=== PATIENT | male | born 1945 | race Asian ===

== ENCOUNTER 2025-04-05 15:56 | Emergency (ER) | payer MEDICARE, OTHER ==
[~2025-04-05] VITALS: Ht 165.1 cm; Wt 73.2 kg
[~2025-04-05 15:56] MED LIST: ACET500T94 PO; ASPI-1444 PO; GLIP5TAB15 PO; IBUP-2077 PO; LISI1TAB PO; LORA10TA7 PO; METF1000 PO; OMEP20CA12 PO; PIOG45TA63 PO; SIMV-261 PO
[2025-04-05 16:04] VITALS: TEMP 98.1
[2025-04-05 16:39] LABS: PLATELET COUNT (AUTO) 213 K/uL (150-450); RED BLOOD CELL COUNT(AUTO) 4.25 MIL/uL (4.50-5.90); RED CELL DISTRIBUTION WIDTH 13.8 % (11.5-14.5); WHITE BLOOD COUNT (AUTO) 6.8 K/uL (4.5-11.0)
[2025-04-05 16:48] LABS: CALCIUM, TOTAL 8.4 mg/dL (8.8-10.5); CREATININE 1.75 mg/dL (0.60-1.30); GLOMERULAR FILTR. RATE CALC 38.0 mL/min (>60); GLUCOSE,RANDOM 137.0 mg/dL (70-110); SODIUM SERUM 136.0 mmol/L (136-145); UREA NITROGEN, BLOOD 38.0 mg/dL (7-18)
[2025-04-05 16:53] LABS: CREATINE KINASE, TOTAL ONLY 113 U/L (39-308)
[2025-04-05 16:56] LABS: TROPONIN I-HIGH SENSITIVITY 17 ng/L (<76)
[2025-04-05] MEDS ORDERED: GABA-1216 PO (16:57)
[2025-04-05] MEDS ORDERED: MECL-302 PO (16:57)
[2025-04-05] MEDS ORDERED: ATOR40TA28 PO (16:57)
[2025-04-05] MEDS ORDERED: CHOL200059 PO (16:57)
[2025-04-05] MEDS ORDERED: TAMS0.4C94 PO (16:57)
[2025-04-05] MEDS ORDERED: FERR325T27 PO (16:57)
[2025-04-05] MEDS ORDERED: LISI-894 PO (16:57)
[2025-04-05] MEDS ORDERED: AMLO-257 PO (16:57)
[2025-04-05 18:00] VITALS: BP 141/69; PULSE 63; RESP 17; O2SAT 99
[2025-04-05 18:08] LABS: APPEARANCE,URINE CLEAR (CLEAR); GLUCOSE, URINE (UA) NEGATIVE (NEGATIVE); LEUKOCYTE ESTERASE ,URINE NEGATIVE (NEGATIVE); NITRATE,URINE NEGATIVE (NEGATIVE); OCCULT BLOOD,URINE NEGATIVE (NEGATIVE); SPECIFIC GRAVITIY, URINE 1.011 (1.003-1.030)
== END 2025-04-05 19:29 | disposition home or self-care (01) ==
LOC: EMS 15:56
DX: R42 Dizziness and giddiness (principal); I10 Essential (primary) hypertension; E11.9 Type 2 diabetes mellitus without complications; R06.02 Shortness of breath; Z79.82 Long term (current) use of aspirin; Z79.84 Long term (current) use of oral hypoglycemic drugs; Z79.899 Other long term (current) drug therapy
CPT/HCPCS: 71045; 80048; 81003; 82550; 82962; 83880; 84484; 85025; 85610; 85730; 93005; 99285; 36415-L1; 36415-TC

== ENCOUNTER 2025-04-28 14:48 | Emergency (ER) | payer OTHER, MEDICARE ==
[~2025-04-28] VITALS: Ht 142.2 cm; Wt 59.0 kg
[~2025-04-28 14:48] MED LIST changes: +AMLO-257 PO; +ATOR40TA28 PO; +CHOL200059 PO; +FERR325T27 PO; +GABA-1216 PO; -GLIP5TAB15 PO; -IBUP-2077 PO; +LISI-894 PO; -LISI1TAB PO; -LORA10TA7 PO; +MECL-302 PO; -PIOG45TA63 PO; -SIMV-261 PO; +TAMS0.4C94 PO
[2025-04-28 15:23] VITALS: TEMP 98.8; O2SAT 97
[2025-04-28 17:49] VITALS: BP 153/77; PULSE 89; O2SAT 97
[2025-04-28] MEDS ORDERED: INSU100I26 SQ (19:40)
[2025-04-28] MEDS ORDERED: TRIA15CR49 TP (19:40)
[2025-04-28] MEDS ORDERED: PIOG30TA70 PO (19:40)
[2025-04-28] MEDS ORDERED: GLIP5TAB15 PO (19:40)
[2025-04-28] MEDS ORDERED: METF-446 PO (19:40)
[2025-04-28] MEDS: IBUPROFEN 600 MG TABLET PO ONE (19:43)
[2025-04-28 19:53] VITALS: RESP 16
== END 2025-04-28 19:44 | disposition home or self-care (01) ==
LOC: EMS 14:48
DX: M25.552 Pain in left hip (principal); E11.9 Type 2 diabetes mellitus without complications; I10 Essential (primary) hypertension; G89.29 Other chronic pain; Z79.82 Long term (current) use of aspirin; Z79.84 Long term (current) use of oral hypoglycemic drugs; Z79.899 Other long term (current) drug therapy; V89.2XXD Person injured in unspecified motor-vehicle accident, traffic, subsequent encounter; Y93.89 Activity, other specified; Y92.410 Unspecified street and highway as the place of occurrence of the external cause; Y99.8 Other external cause status
CPT/HCPCS: 73521; 99283